=== PATIENT | male | born 1940 | race Caucasian/White ===

== ENCOUNTER 2016-09-08 11:26 | Emergency (ER) | payer OTHER ==
[2016-09-08] MEDS ORDERED: MORPHINE SULFATE 10 MG/ML SOL IV ONE (11:38)
[2016-09-08] MEDS ORDERED: ALBUTEROL/IPRATROPIUM 1 VIAL SOL INH ONE (11:38)
[2016-09-08] MEDS ORDERED: SOLUMEDROL 125 MG/2 ML 125 MG/2 ML PDS IV ONE (11:38)
[2016-09-08] MEDS ORDERED: MORPHINE SULFATE 10 MG/ML SOL ONE (11:50)
[2016-09-08] MEDS ORDERED: SOLUMEDROL 125 MG/2 ML 125 MG/2 ML PDS ONE (11:50)
[2016-09-08] MEDS ORDERED: ALBUTEROL/IPRATROPIUM 1 VIAL SOL ONE (11:50)
[2016-09-08 11:51] LABS: BASOPHILS % (AUTO) 0 % (0-3); EOSINOPHILS % (AUTO) 1 % (0-9); HEMATOCRIT 36 % (39-53); MEAN CORPUSCULAR HGB CONC 35.6 gm/dl (32.0-36.0); MEAN CORPUSCULAR VOLUME 86 fL (80-100); MONOCYTES % (AUTO) 8.9 % (0-12); NEUTROPHILS % (AUTO) 81.6 % (37-80)
[2016-09-08 12:06] LABS: CALCIUM 8.9 mg/dl (8.5-10.1); POTASSIUM 4.2 mMol/L (3.5-5.1)
[2016-09-08] MEDS ORDERED: METOLAZONE 2.5 MG TAB PO ONE (12:22)
[2016-09-08] MEDS ORDERED: FUROSEMIDE 40 MG SOL IV ONE (12:22)
[2016-09-08 12:28] VITALS: TEMP 98
[2016-09-08] MEDS ORDERED: FUROSEMIDE 40 MG SOL ONE (12:35)
[2016-09-08 13:06] VITALS: RESP 26
[2016-09-08] MEDS ORDERED: LORAZEPAM 0.5 MG TAB PO ONE (13:39)
[2016-09-08] MEDS ORDERED: LORAZEPAM 0.5 MG TAB ONE (13:40)
[2016-09-08 15:32] VITALS: O2SAT 96
[2016-09-08 15:33] VITALS: BP 123/81; PULSE 89
== END 2016-09-08 15:46 | disposition home or self-care (01) | DRG 192 ==
LOC: ED 11:26
DX: J44.1 Chronic obstructive pulmonary disease with (acute) exacerbation (principal); I50.9 Heart failure, unspecified
CPT/HCPCS: 36415; 71020; 80048; 83880; 84484; 85025; 93005; 96374; 96375; 99284; 99285; J1940; J2270; J2930; J7620

== ENCOUNTER 2017-11-21 05:11 | Inpatient (IN) | payer OTHER ==
[2017-11-21] MEDS ORDERED: KETOROLAC TROMETHAMINE 30 MG/ML SOL IM ONE (06:15)
[2017-11-21] MEDS ORDERED: KETOROLAC TROMETHAMINE 30 MG/ML SOL ONE (06:16)
[2017-11-21 07:23] LABS: BASOPHILS % (AUTO) 1 % (0-3); EOSINOPHILS % (AUTO) 1 % (0-9); HEMATOCRIT 34 % (39-53); HEMOGLOBIN 11.4 gm/dl (13.5-17.7); LYMPHOCYTES % (AUTO) 9.2 % (10-50); MEAN CORPUSCULAR HGB CONC 33.2 gm/dl (32.0-36.0); MEAN CORPUSCULAR VOLUME 87 fL (80-100); MONOCYTES % (AUTO) 7.7 % (0-12); NEUTROPHILS % (AUTO) 80.8 % (37-80)
[2017-11-21 07:26] LABS: CALCIUM 8.4 mg/dl (8.5-10.1); CREATININE 0.96 mg/dl (0.80-1.30); POTASSIUM 3.4 mMol/L (3.5-5.1)
[2017-11-21] MEDS ORDERED: APAP/HYDROCODONE 325/5 TAB PO PRN (07:47)
[2017-11-21] MEDS ORDERED: APAP/HYDROCODONE 325/5 TAB ONE (07:54)
[2017-11-21] MEDS: NAPROXEN 500 MG TAB PO SCH ×3 (07:55→20:11)
[2017-11-21] MEDS ORDERED: NAPROXEN 500 MG TAB ONE (07:55)
[2017-11-21] MEDS ORDERED: ALBUTEROL NEB SOL 2.5MG/3ML 1 VIAL SOL NEB PRN (08:25)
[2017-11-21] MEDS ORDERED: FUROSEMIDE 20 MG TAB PO SCH ×2 (09:15→14:00)
[2017-11-21] MEDS: MULTIVITAMIN2 1 EA TAB PO SCH (10:39)
[2017-11-21] MEDS: BUDESONIDE/FORMOTEROL 160/4.5 AER INH SCH ×2 (10:40→20:05)
[2017-11-21] MEDS: TIOTROPIUM BROMIDE 18 MCG CAP INH SCH (10:40)
[2017-11-21] MEDS: PREDNISONE 5 MG TAB PO SCH (10:42)
[2017-11-21] MEDS: SPIRONOLACTONE 25 MG TAB PO SCH (10:43)
[2017-11-21] MEDS: METOPROLOL TARTRATE 25 MG TAB PO SCH (10:43)
[2017-11-21] MEDS: ISOSORBIDE MONONITRATE 30 MG TER PO SCH (10:43)
[2017-11-21] MEDS: ASPIRIN EC 81 MG PO SCH (10:43)
[2017-11-21] MEDS: ENOXAPARIN 40 MG SOL SC SCH (10:49)
[2017-11-21] MEDS: APAP/CODEINE 300/30 TAB PO PRN (18:21)
[2017-11-21] MEDS: TRAZODONE HYDROCHLORIDE 50 MG TAB PO SCH (20:05)
[2017-11-21] MEDS: DOCUSATE SODIUM 100 MG SGL PO SCH (20:09)
[2017-11-22] MEDS: APAP/CODEINE 300/30 TAB PO PRN ×2 (09:52→13:05)
[2017-11-22] MEDS: ENOXAPARIN 40 MG SOL SC SCH (09:53)
[2017-11-22] MEDS: ASPIRIN EC 81 MG PO SCH (09:54)
[2017-11-22] MEDS: ISOSORBIDE MONONITRATE 30 MG TER PO SCH (09:55)
[2017-11-22] MEDS: PREDNISONE 5 MG TAB PO SCH (09:55)
[2017-11-22] MEDS: METOPROLOL TARTRATE 25 MG TAB PO SCH (09:56)
[2017-11-22] MEDS: NAPROXEN 500 MG TAB PO SCH ×2 (09:56→20:28)
[2017-11-22] MEDS: FUROSEMIDE 40 MG TAB PO SCH (09:56)
[2017-11-22] MEDS: SPIRONOLACTONE 25 MG TAB PO SCH (09:56)
[2017-11-22] MEDS: BUDESONIDE/FORMOTEROL 160/4.5 AER INH SCH ×2 (09:57→20:29)
[2017-11-22] MEDS: DOCUSATE SODIUM 100 MG SGL PO SCH ×2 (09:57→20:28)
[2017-11-22] MEDS: TIOTROPIUM BROMIDE 18 MCG CAP INH SCH (12:36)
[2017-11-22] MEDS: FUROSEMIDE 20 MG TAB PO SCH (13:58)
[2017-11-22] MEDS: ALBUTEROL/IPRATROPIUM 1 VIAL SOL INH SCH ×3 (13:58→22:13)
[2017-11-22] MEDS: TRAZODONE HYDROCHLORIDE 50 MG TAB PO SCH (22:30)
[2017-11-23] MEDS ORDERED: SODIUM CHLORIDE 0.9% FLUSH 10 ML SOL IV SCH (01:00)
[2017-11-23] MEDS: DOCUSATE SODIUM 100 MG SGL PO SCH ×2 (08:49→21:08)
[2017-11-23] MEDS: MULTIVITAMIN2 1 EA TAB PO SCH (08:49)
[2017-11-23] MEDS: ASPIRIN EC 81 MG PO SCH (08:50)
[2017-11-23] MEDS: SPIRONOLACTONE 25 MG TAB PO SCH (08:50)
[2017-11-23] MEDS: METOPROLOL TARTRATE 25 MG TAB PO SCH (08:51)
[2017-11-23] MEDS: ISOSORBIDE MONONITRATE 30 MG TER PO SCH (08:51)
[2017-11-23] MEDS: FUROSEMIDE 40 MG TAB PO SCH (08:51)
[2017-11-23] MEDS: NAPROXEN 500 MG TAB PO SCH ×2 (08:52→21:08)
[2017-11-23] MEDS: PREDNISONE 5 MG TAB PO SCH (08:52)
[2017-11-23] MEDS: ENOXAPARIN 40 MG SOL SC SCH (10:41)
[2017-11-23] MEDS: ALBUTEROL/IPRATROPIUM 1 VIAL SOL INH SCH ×4 (10:41→21:06)
[2017-11-23] MEDS: BUDESONIDE/FORMOTEROL 160/4.5 AER INH SCH ×2 (10:42→21:07)
[2017-11-23] MEDS: FUROSEMIDE 20 MG TAB PO SCH (14:48)
[2017-11-23] MEDS: APAP/CODEINE 300/30 TAB PO PRN (17:34)
[2017-11-23] MEDS: TRAZODONE HYDROCHLORIDE 50 MG TAB PO SCH (21:07)
[2017-11-24] MEDS: APAP/CODEINE 300/30 TAB PO PRN ×2 (02:35→20:37)
[2017-11-24] MEDS: BUDESONIDE/FORMOTEROL 160/4.5 AER INH SCH ×2 (09:07→20:38)
[2017-11-24] MEDS: DOCUSATE SODIUM 100 MG SGL PO SCH ×2 (09:07→20:37)
[2017-11-24] MEDS: FUROSEMIDE 40 MG TAB PO SCH (09:08)
[2017-11-24] MEDS: SPIRONOLACTONE 25 MG TAB PO SCH (09:09)
[2017-11-24] MEDS: NAPROXEN 500 MG TAB PO SCH ×2 (09:09→20:38)
[2017-11-24] MEDS: PREDNISONE 5 MG TAB PO SCH (09:09)
[2017-11-24] MEDS: METOPROLOL TARTRATE 25 MG TAB PO SCH (09:09)
[2017-11-24] MEDS: ISOSORBIDE MONONITRATE 30 MG TER PO SCH (09:10)
[2017-11-24] MEDS: ASPIRIN EC 81 MG PO SCH (09:10)
[2017-11-24] MEDS: ENOXAPARIN 40 MG SOL SC SCH (09:11)
[2017-11-24] MEDS: ALBUTEROL/IPRATROPIUM 1 VIAL SOL INH SCH ×4 (09:16→20:31)
[2017-11-24] MEDS: FUROSEMIDE 20 MG TAB PO SCH (14:30)
[2017-11-24 18:04] VITALS: TEMP 97.8
[2017-11-24] MEDS: TRAZODONE HYDROCHLORIDE 50 MG TAB PO SCH (20:38)
[2017-11-25] MEDS: APAP/CODEINE 300/30 TAB PO PRN (07:07)
[2017-11-25 07:28] LABS: BASOPHILS % (AUTO) 2 % (0-3); EOSINOPHILS % (AUTO) 4 % (0-9); HEMATOCRIT 35 % (39-53); HEMOGLOBIN 11.5 gm/dl (13.5-17.7); LYMPHOCYTES % (AUTO) 20.3 % (10-50); MEAN CORPUSCULAR HGB CONC 32.4 gm/dl (32.0-36.0); MEAN CORPUSCULAR VOLUME 89 fL (80-100); MONOCYTES % (AUTO) 8.5 % (0-12); NEUTROPHILS % (AUTO) 65.9 % (37-80)
[2017-11-25 07:35] LABS: CALCIUM 8.8 mg/dl (8.5-10.1); CARBON DIOXIDE 25.4 mEq/L (21-32); CREATININE 1.24 mg/dl (0.80-1.30); POTASSIUM 4.4 mMol/L (3.5-5.1)
[2017-11-25] MEDS: ALBUTEROL/IPRATROPIUM 1 VIAL SOL INH SCH (08:51)
[2017-11-25] MEDS: MULTIVITAMIN2 1 EA TAB PO SCH (08:57)
[2017-11-25] MEDS: SPIRONOLACTONE 25 MG TAB PO SCH (08:58)
[2017-11-25] MEDS: ISOSORBIDE MONONITRATE 30 MG TER PO SCH (08:59)
[2017-11-25] MEDS: ASPIRIN EC 81 MG PO SCH (08:59)
[2017-11-25] MEDS: FUROSEMIDE 40 MG TAB PO SCH (09:01)
[2017-11-25] MEDS: METOPROLOL TARTRATE 25 MG TAB PO SCH (09:01)
[2017-11-25] MEDS: NAPROXEN 500 MG TAB PO SCH (09:02)
[2017-11-25] MEDS: BUDESONIDE/FORMOTEROL 160/4.5 AER INH SCH (09:03)
[2017-11-25] MEDS: ENOXAPARIN 40 MG SOL SC SCH (09:12)
[2017-11-25] MEDS: DOCUSATE SODIUM 100 MG SGL PO SCH (09:13)
[2017-11-25] MEDS: PREDNISONE 5 MG TAB PO SCH (09:13)
[2017-11-25 09:17] VITALS: O2SAT 96
[2017-11-25 09:19] VITALS: BP 117/61
[2017-11-25 11:01] VITALS: PULSE 80; RESP 16
== END 2017-11-25 12:15 | disposition home or self-care (01) | DRG 185 ==
LOC: ED 05:11 → ACUTE CARE 07:31 → UNDOADMIN 07:31 → ACUTE CARE 08:05
PROVIDERS: ADMIT Family Medicine; ATTEND Family Medicine
PROC: F01K5YZ Range of Motion and Joint Integrity Assessment of Musculoskeletal System - Upper Back / Upper Extremity using Other Equipment (ICD-10-PCS; principal; 2017-11-21)
PROC: F01K0FZ Muscle Performance Assessment of Musculoskeletal System - Upper Back / Upper Extremity using Assistive, Adaptive, Supportive or Protective Equipment (ICD-10-PCS; 2017-11-21)
PROC: F02Z1FZ Dressing Assessment using Assistive, Adaptive, Supportive or Protective Equipment (ICD-10-PCS; 2017-11-21)
PROC: F02Z3FZ Grooming/Personal Hygiene Assessment using Assistive, Adaptive, Supportive or Protective Equipment (ICD-10-PCS; 2017-11-21)
DX: M25.511 Pain in right shoulder (principal); S22.41XA Multiple fractures of ribs, right side, initial encounter for closed fracture; S51.011A Laceration without foreign body of right elbow, initial encounter; W19.XXXA Unspecified fall, initial encounter; S42.031A Displaced fracture of lateral end of right clavicle, initial encounter for closed fracture; J44.9 Chronic obstructive pulmonary disease, unspecified; S42.034A Nondisplaced fracture of lateral end of right clavicle, initial encounter for closed fracture; M05.79 Rheumatoid arthritis with rheumatoid factor of multiple sites without organ or systems involvement; R07.9 Chest pain, unspecified; S51.811A Laceration without foreign body of right forearm, initial encounter; S61.411A Laceration without foreign body of right hand, initial encounter
CPT/HCPCS: 36415; 71101; 73000; 73030; 80048; 84132; 85025; 94150; 94640; 94664; 96372; 99222; 99285; J1650; J1885; J7613; A6232; A6402; A6446; A9270; A9270-GY

== ENCOUNTER 2018-09-06 10:23 | Inpatient (IN) | payer OTHER ==
[2018-09-06 11:53] VITALS: BP 118/85
[2018-09-06] MEDS ORDERED: APAP/CODEINE 1 EACH TABLET PO PRN (14:31)
[2018-09-06] MEDS ORDERED: TIZANIDINE HCL 4 MG PO PRN (14:31)
[2018-09-06] MEDS ORDERED: SENNOSIDES A AND B 8.6 MG TAB PO PRN (14:31)
[2018-09-06] MEDS ORDERED: [UNRECOGNIZED DRUG - OTHER] PO PRN (14:31)
[2018-09-06] MEDS ORDERED: POLYETHYLENE GLYCOL 17 GM/1 TBS PDS PO PRN (14:31)
[2018-09-06] MEDS ORDERED: MORPHINE SULFATE 20 MG/ML PO PRN (14:31)
[2018-09-06] MEDS ORDERED: ALBUTEROL SULFATE 120 PUFF/17 GM ARO INH PRN (15:45)
[2018-09-06] MEDS ORDERED: LORAZEPAM 0.5 MG TAB PO PRN (15:58)
[2018-09-06] MEDS ORDERED: NITROGLYCERIN 0.4 MG TAB SL PRN (16:00)
[2018-09-06 20:00] VITALS: PULSE 92; RESP 18; TEMP 97.2; O2SAT 98
[2018-09-06] MEDS ORDERED: TRAZODONE HYDROCHLORIDE 50 MG TAB PO SCH (21:00)
[2018-09-06] MEDS: BUDESONIDE/FORMOTEROL 160/4.5 AER INH SCH (21:40)
[2018-09-06] MEDS: LORAZEPAM 0.5 MG TAB PO SCH (21:41)
[2018-09-07] MEDS: ALBUTEROL NEB SOL 2.5MG/3ML 1 VIAL SOL NEB PRN ×2 (05:00→15:34)
[2018-09-07] MEDS ORDERED: OMEPRAZOLE 20 MG CAPSULE PO PRN (07:00)
[2018-09-07] MEDS: LORAZEPAM 0.5 MG TAB PO SCH ×3 (08:27→15:32)
[2018-09-07] MEDS: BUDESONIDE/FORMOTEROL 160/4.5 AER INH SCH (08:28)
[2018-09-07] MEDS ORDERED: SPIRONOLACTONE 25 MG TAB PO SCH (09:00)
[2018-09-07] MEDS ORDERED: ISOSORBIDE MONONITRATE 30 MG TER PO SCH (09:00)
[2018-09-07] MEDS ORDERED: ASPIRIN EC 81 MG PO SCH (09:00)
[2018-09-07] MEDS ORDERED: METOPROLOL TARTRATE 25 MG TAB PO SCH (09:00)
[2018-09-07] MEDS ORDERED: TIOTROPIUM BROMIDE 18 MCG CAP INH SCH (09:00)
[2018-09-07] MEDS ORDERED: POTASSIUM CHLORIDE 10 MEQ TER PO SCH (09:00)
[2018-09-07] MEDS ORDERED: PREDNISONE 5 MG TAB PO SCH (09:00)
[2018-09-07] MEDS ORDERED: FUROSEMIDE 40 MG TAB PO SCH ×2 (09:00→12:00)
== END 2018-09-07 18:55 | disposition home health service (06) | DRG 192 ==
LOC: ACUTE CARE 10:44
PROVIDERS: ADMIT Family Medicine; ATTEND Family Medicine
DX: J43.1 Panlobular emphysema (principal); M06.9 Rheumatoid arthritis, unspecified
CPT/HCPCS: 94640; A6232; A9270-GY